=== PATIENT | female | born 1975 | race Caucasian/White ===

== ENCOUNTER → 2020-08-11 | Outpatient (CLI) | payer OTHER, BC ==
[~2020-08-11] MED LIST: IBUP80TA PO; MULT1TAB10 PO; PERC5TAB12 PO
== END ==
LOC: M LABSMTC 17:45
PROVIDERS: ATTEND Pediatrics
DX: Z11.59 Encounter for screening for other viral diseases (principal)

== ENCOUNTER → 2020-08-30 | Outpatient (CLI) | payer SELFPAY | LOC: M LABSMTC 09:02 | PROVIDERS: ATTEND Pediatrics | DX: Z20.828 Contact with and (suspected) exposure to other viral communicable diseases (principal) ==

== ENCOUNTER → 2022-11-17 | Outpatient (CLI) | payer BC | LOC: M RAD 17:16 | PROVIDERS: ATTEND Physician Assistant | DX: R43.2 Parageusia (principal) ==